=== PATIENT | male | born 1945 | race Caucasian/White ===

== ENCOUNTER 2017-07-22 13:53 | Inpatient (IN) | payer MEDICAID, MEDICARE ==
[~2017-07-22] VITALS: Ht 185.4 cm; Wt 83.7 kg
[2017-07-22] MEDS ORDERED: ALBUTEROL SULF 2.5 MG/0.5ML(0.5%) NEB SOLN HHN ONE (14:30)
[2017-07-22] MEDS ORDERED: IPRATROPIUM BROM 0.5 MG/2.5ML INH SOL HHN ONE (14:30)
[2017-07-22] MEDS ORDERED: methylPREDNISolone SOD SUCC 125 MG/2 ML VL IV ONE (14:30)
[2017-07-22 15:19] LABS: Alanine Aminotransferase 15 U/L (16-61); Albumin 3.5 g/dL (3.4-5.0); Anion Gap 11 (5-15); Aspartate Aminotransferase 10 U/L (15-37); BUN/Creatinine Ratio 16.7; Blood Urea Nitrogen 15 mg/dL (7-18); Calcium 8.6 mg/dL (8.5-10.1); Carbon Dioxide 21 mmol/L (21-32); Chloride 107 mmol/L (98-107); GFR African American 106 mL/min; GFR Non-African American 88 mL/min; Glucose 96 mg/dL (74-106); Magnesium 2.2 mg/dL (1.6-2.6); Potassium 3.6 mmol/L (3.5-5.1); Sodium 139 mmol/L (136-145)
[2017-07-22 15:24] LABS: Alkaline Phosphatase 80 U/L (45-117); Basophils # (auto) 0 uL; Basophils % (auto) 0.5 % (0.0-2.0); Bilirubin, Total 1.2 mg/dL (0.2-1.0); Eosinophils # (auto) 0.2 uL; Eosinophils % (auto) 2.8 % (0.0-7.0); Hematocrit 45.9 % (41.0-53.0); Hemoglobin 15.8 g/dL (13.5-17.5); Lymphocytes # (auto) 1.3 uL; Lymphocytes % (auto) 18.9 % (10.0-50.0); Mean Corpuscular Hemoglobin 31.7 pg (28.0-32.0); Mean Corpuscular Hgb Conc. 34.4 g/dL (32.0-36.0); Mean Corpuscular Volume 92.3 fL (80.0-100.0); Monocytes # (auto) 0.5 uL; Monocytes % (auto) 7.1 % (0.0-12.0); Neutrophils # (auto) 4.7 uL; Neutrophils % (auto) 70.7 % (37.0-80.0); Nucleated Red Blood Cells % 0.5 %; Platelet Count (auto) 148 10^3/uL (140-450); Red Blood Cells 4.97 10^6/uL (4.5-5.90); Red Cell Distribution Width 13.8 % (11.8-14.3); Total Protein 7.1 g/dL (6.4-8.2); White Blood Cell 6.7 10^3/uL (4.4-10.8)
[2017-07-22] MEDS ORDERED: MORPHINE SULF INJ 2 MG/ML SYRINGE 1ML IV PRN (15:45)
[2017-07-22] MEDS ORDERED: LACTULOSE 20Gm/30ML SOLN PO PRN ×2 (15:45→17:30)
[2017-07-22] MEDS ORDERED: LORazepam 0.5 MG TAB PO PRN (15:45)
[2017-07-22] MEDS ORDERED: PROMETHAZINE HCL 25 MG/ML 1ML IV PRN (15:45)
[2017-07-22] MEDS ORDERED: MORPHINE SULFATE 10 MG/ML INJ 1ML SDV IV PRN (15:45)
[2017-07-22] MEDS ORDERED: TEMAZEPAM 15 MG CAP PO PRN (15:45)
[2017-07-22] MEDS ORDERED: ALBUTEROL SULF 2.5 MG/0.5ML(0.5%) NEB SOLN NEB PRN (15:45)
[2017-07-22] MEDS ORDERED: NITROGLYCERIN 0.4 MG SL TAB SL PRN (15:45)
[2017-07-22] MEDS ORDERED: ISOS30TA4 PO (15:54)
[2017-07-22] MEDS ORDERED: METO25TA62 PO (15:54)
[2017-07-22] MEDS ORDERED: GABA300C10 PO (15:54)
[2017-07-22] MEDS ORDERED: HYDR2.5L TOP (15:54)
[2017-07-22] MEDS ORDERED: AMLO5TAB2 PO (15:54)
[2017-07-22] MEDS ORDERED: SENN-68 PO (15:57)
[2017-07-22] MEDS ORDERED: IBUP800T24 PO (15:57)
[2017-07-22] MEDS ORDERED: PRAV20TA3 PO (15:57)
[2017-07-22] MEDS ORDERED: PANT1INJ3 PO (15:57)
[2017-07-22] MEDS ORDERED: MECL-87 PO (15:57)
[2017-07-22] MEDS ORDERED: PANC24002 PO (15:58)
[2017-07-22] MEDS ORDERED: TRIA0.1P11 TOP (15:58)
[2017-07-22] MEDS: OSELTAMIVIR 75 MG CAP PO ONE ×2 (16:02→17:06)
[2017-07-22] MEDS: SODIUM CHLORIDE 0.9% 1,000 ML IV SCH (16:14)
[2017-07-22] MEDS: DOXYCYCLINE HYC 100MG/250ML 250 ML IV SCH (16:14)
[2017-07-22] MEDS: ENOXAPARIN SOD 40 MG/0.4 ML SYRINGE SC SCH (16:14)
[2017-07-22] MEDS ORDERED: LACTULOSE 20Gm/30ML SOLN PO ONE (17:45)
[2017-07-22] MEDS: ASPirin 81 mg TAB PO SCH (18:37)
[2017-07-22 18:50] VITALS: BP 139/77
[2017-07-22] MEDS: IPRATROPIUM BROM 0.5 MG/2.5ML INH SOL NEB SCH (18:56)
[2017-07-22] MEDS: ALBUTEROL SULF 2.5 MG/0.5ML(0.5%) NEB SOLN NEB SCH (18:56)
[2017-07-22] MEDS ORDERED: INFLUENZA QUAD 2017-2018 0.5 ML SYRG IM ONE (19:15)
[2017-07-22] MEDS ORDERED: PNEUMOCOCCAL VACC POLYS 25 MCG/0.5 ML VIAL IM ONE (19:15)
[2017-07-22] MEDS ORDERED: methylPREDNISolone SOD SUCC 40 MG/ML VL IV SCH (20:00)
[2017-07-22] MEDS: HYDROcodone-ACET 5/325MG TAB PO PRN (20:38)
[2017-07-22] MEDS: ATORVASTATIN 20 MG TAB PO SCH (20:38)
[2017-07-22] MEDS: GABAPENTIN 300 MG CAP PO SCH (20:38)
[2017-07-22] MEDS: OSELTAMIVIR 75 MG CAP PO SCH (20:39)
[2017-07-22 21:49] VITALS: BP 123/63
[2017-07-22 21:51] VITALS: BP 131/91
[2017-07-22] MEDS ORDERED: SENNOSIDES DOCUSATE SODIUM PO SCH (22:00)
[2017-07-22] MEDS: ACETAMINOPHEN 500 MG TAB PO PRN (22:22)
[2017-07-22 23:58] VITALS: BP 131/91
[2017-07-23] MEDS: ALBUTEROL SULF 2.5 MG/0.5ML(0.5%) NEB SOLN NEB SCH
[2017-07-23] MEDS: IPRATROPIUM BROM 0.5 MG/2.5ML INH SOL NEB SCH
[2017-07-23] MEDS: DOXYCYCLINE HYC 100MG/250ML 250 ML IV SCH ×2 (04:03→16:10)
[2017-07-23] MEDS: GABAPENTIN 300 MG CAP PO SCH ×3 (04:28→22:26)
[2017-07-23] MEDS: SODIUM CHLORIDE 0.9% 1,000 ML IV SCH ×2 (04:57→18:17)
[2017-07-23 05:00] VITALS: BP 130/75
[2017-07-23] MEDS: HYDROcodone-ACET 5/325MG TAB PO PRN (05:54)
[2017-07-23 06:18] LABS: Cholesterol 156 mg/dL (< 200); HDL Cholesterol 42 mg/dL (40-59); LDL Cholesterol 118 mg/dL (< 100); Triglycerides 68 mg/dL (< 150)
[2017-07-23 09:00] VITALS: BP 137/86
[2017-07-23] MEDS: ENOXAPARIN SOD 40 MG/0.4 ML SYRINGE SC SCH (09:15)
[2017-07-23] MEDS: LACTULOSE 20Gm/30ML SOLN PO SCH ×2 (09:15→09:22)
[2017-07-23] MEDS: OSELTAMIVIR 75 MG CAP PO SCH ×2 (09:16→22:26)
[2017-07-23] MEDS: MORPHINE SULF INJ 2 MG/ML SYRINGE 1ML IV PRN ×2 (09:16→14:30)
[2017-07-23] MEDS: PANTOPRAZOLE 40 MG TAB PO SCH (09:16)
[2017-07-23] MEDS: ASPirin 81 mg TAB PO SCH (09:16)
[2017-07-23] MEDS: METOPROLOL SUCCINATE XL 50 MG TAB PO SCH (09:17)
[2017-07-23] MEDS: ISOSORBIDE MONONITRATE 60 MG TAB PO SCH (09:17)
[2017-07-23] MEDS: amLODIPine BESYLATE 5 MG TAB PO SCH (09:17)
[2017-07-23] MEDS ORDERED: PANT40T PO (09:30)
[2017-07-23] MEDS: DOCUSATE SOD 100 MG CAP PO SCH ×2 (09:34→22:26)
[2017-07-23] MEDS: SENNA 8.6 MG TAB PO SCH ×2 (09:34→22:26)
[2017-07-23] MEDS: PANCREATIC ENZYMES PO SCH (09:57)
[2017-07-23 13:00] VITALS: BP 128/71
[2017-07-23 17:35] VITALS: BP 104/57
[2017-07-23] MEDS: ATORVASTATIN 20 MG TAB PO SCH (22:26)
[2017-07-23 22:36] VITALS: BP 96/50
[2017-07-24] MEDS: DOXYCYCLINE HYC 100MG/250ML 250 ML IV SCH ×2 (04:46→15:51)
[2017-07-24 05:37] VITALS: BP 128/65
[2017-07-24 05:50] LABS: Basophils # (auto) 0 uL; Basophils % (auto) 0.2 % (0.0-2.0); Eosinophils # (auto) 0 uL; Eosinophils % (auto) 0.5 % (0.0-7.0); Hematocrit 41.1 % (41.0-53.0); Hemoglobin 13.8 g/dL (13.5-17.5); Lymphocytes # (auto) 1.1 uL; Lymphocytes % (auto) 16.5 % (10.0-50.0); Mean Corpuscular Hemoglobin 31.4 pg (28.0-32.0); Mean Corpuscular Hgb Conc. 33.6 g/dL (32.0-36.0); Mean Corpuscular Volume 93.4 fL (80.0-100.0); Monocytes # (auto) 0.4 uL; Monocytes % (auto) 6.7 % (0.0-12.0); Neutrophils % (auto) 76.1 % (37.0-80.0); Nucleated Red Blood Cells % 0.1 %; Platelet Count (auto) 125 10^3/uL (140-450); White Blood Cell 6.6 10^3/uL (4.4-10.8)
[2017-07-24] MEDS: GABAPENTIN 300 MG CAP PO SCH ×3 (06:12→21:59)
[2017-07-24] MEDS: SODIUM CHLORIDE 0.9% 1,000 ML IV SCH ×2 (07:37→13:07)
[2017-07-24 09:00] VITALS: BP 132/85
[2017-07-24] MEDS: METOPROLOL SUCCINATE XL 50 MG TAB PO SCH (09:46)
[2017-07-24] MEDS: DOCUSATE SOD 100 MG CAP PO SCH ×2 (09:46→21:58)
[2017-07-24] MEDS: PANTOPRAZOLE 40 MG TAB PO SCH (09:46)
[2017-07-24] MEDS: SENNA 8.6 MG TAB PO SCH ×2 (09:46→21:59)
[2017-07-24] MEDS: OSELTAMIVIR 75 MG CAP PO SCH ×2 (09:46→21:59)
[2017-07-24] MEDS: ASPirin 81 mg TAB PO SCH (09:47)
[2017-07-24] MEDS: amLODIPine BESYLATE 5 MG TAB PO SCH (09:47)
[2017-07-24] MEDS: PANCREATIC ENZYMES PO SCH (09:47)
[2017-07-24] MEDS: ISOSORBIDE MONONITRATE 60 MG TAB PO SCH (09:47)
[2017-07-24] MEDS: ENOXAPARIN SOD 40 MG/0.4 ML SYRINGE SC SCH (09:48)
[2017-07-24] MEDS: LACTULOSE 20Gm/30ML SOLN PO SCH (09:48)
[2017-07-24 13:00] VITALS: BP 115/64
[2017-07-24] MEDS: HYDROcodone-ACET 5/325MG TAB PO PRN ×2 (15:56→21:59)
[2017-07-24] MEDS: ACETAMINOPHEN 500 MG TAB PO PRN (17:37)
[2017-07-24 17:46] VITALS: BP 111/60
[2017-07-24] MEDS: ATORVASTATIN 20 MG TAB PO SCH (21:58)
[2017-07-24 22:44] VITALS: BP 106/66
[2017-07-25] MEDS: DOXYCYCLINE HYC 100MG/250ML 250 ML IV SCH (03:53)
[2017-07-25 05:16] VITALS: BP 126/89
[2017-07-25] MEDS: GABAPENTIN 300 MG CAP PO SCH ×2 (06:07→13:14)
[2017-07-25] MEDS: HYDROcodone-ACET 5/325MG TAB PO PRN (06:16)
[2017-07-25 07:30] VITALS: BP 121/80
[2017-07-25 09:00] VITALS: BP 142/80
[2017-07-25] MEDS: LACTULOSE 20Gm/30ML SOLN PO SCH (10:00)
[2017-07-25] MEDS: PANCREATIC ENZYMES PO SCH (10:00)
[2017-07-25] MEDS: SENNA 8.6 MG TAB PO SCH (10:00)
[2017-07-25] MEDS: DOCUSATE SOD 100 MG CAP PO SCH (10:00)
[2017-07-25] MEDS: METOPROLOL SUCCINATE XL 50 MG TAB PO SCH (10:22)
[2017-07-25] MEDS: PANTOPRAZOLE 40 MG TAB PO SCH (10:23)
[2017-07-25] MEDS: ASPirin 81 mg TAB PO SCH (10:23)
[2017-07-25] MEDS: amLODIPine BESYLATE 5 MG TAB PO SCH (10:23)
[2017-07-25] MEDS: OSELTAMIVIR 75 MG CAP PO SCH (10:23)
[2017-07-25] MEDS: ISOSORBIDE MONONITRATE 60 MG TAB PO SCH (10:23)
[2017-07-25] MEDS: ENOXAPARIN SOD 40 MG/0.4 ML SYRINGE SC SCH (12:44)
[2017-07-25] MEDS: SODIUM CHLORIDE 0.9% 1,000 ML IV SCH (12:45)
[2017-07-25 13:00] VITALS: BP 121/80
[2017-07-25] MEDS ORDERED: TAMIFLU PO (13:00)
[2017-07-25] MEDS ORDERED: DOXY-216 PO (13:00)
[2017-07-25 15:12] VITALS: BP 142/80
[2017-07-25] MEDS ORDERED: DOXYCYCLINE 100 MG TAB/CAP PO SCH (22:00)
== END 2017-07-25 16:50 | disposition home or self-care (01) | DRG 140 ==
LOC: ER 13:53 → TELE 13:54 → TELE-EAST 17:50 → EAST 07-25 13:44 → TELE-EAST 07-25 13:45
PROVIDERS: ADMIT Internal Medicine; ATTEND Internal Medicine
DX: J44.1 Chronic obstructive pulmonary disease with (acute) exacerbation (principal); I69.351 Hemiplegia and hemiparesis following cerebral infarction affecting right dominant side; G62.9 Polyneuropathy, unspecified; J10.1 Influenza due to other identified influenza virus with other respiratory manifestations; I10 Essential (primary) hypertension; E78.5 Hyperlipidemia, unspecified; F41.9 Anxiety disorder, unspecified; G47.00 Insomnia, unspecified; R00.0 Tachycardia, unspecified; K59.00 Constipation, unspecified; Z79.82 Long term (current) use of aspirin; Z83.3 Family history of diabetes mellitus; Z88.8 Allergy status to other drugs, medicaments and biological substances; Z90.49 Acquired absence of other specified parts of digestive tract; Z87.891 Personal history of nicotine dependence; Z23 Encounter for immunization
CPT/HCPCS: 36415; 71045; 80053; 80061; 82550; 83735; 83880; 84132; 84484; 85025; 87400; 93005; 94644; 96372; 96374; 96375; J3490

== ENCOUNTER 2017-08-18 13:59 | Emergency (ER) | payer MEDICARE, MEDICAID ==
[~2017-08-18] VITALS: Ht 185.4 cm; Wt 81.6 kg
[~2017-08-18 13:59] MED LIST: AMLO5TAB2 PO; DOXY-216 PO; GABA300C10 PO; HYDR2.5L TOP; IBUP800T24 PO; ISOS30TA4 PO; MECL-87 PO; METO25TA62 PO; PANC24002 PO; PANT40T PO; PRAV20TA3 PO; SENN-68 PO; TAMIFLU PO; TRIA0.1P11 TOP
[2017-08-18 15:21] LABS: Basophils # (auto) 0 uL; Basophils % (auto) 0.3 % (0.0-2.0); Eosinophils # (auto) 0 uL; Eosinophils % (auto) 0.1 % (0.0-7.0); Hematocrit 46.5 % (41.0-53.0); Hemoglobin 15.7 g/dL (13.5-17.5); Lymphocytes % (auto) 10.2 % (10.0-50.0); Mean Corpuscular Hemoglobin 30.9 pg (28.0-32.0); Mean Corpuscular Hgb Conc. 33.8 g/dL (32.0-36.0); Mean Corpuscular Volume 91.4 fL (80.0-100.0); Monocytes # (auto) 0.8 uL; Neutrophils # (auto) 8.1 uL; Neutrophils % (auto) 81.4 % (37.0-80.0); Nucleated Red Blood Cells % 0.1 %; Platelet Count (auto) 107 10^3/uL (140-450); Red Blood Cells 5.09 10^6/uL (4.5-5.90); Red Cell Distribution Width 13.9 % (11.8-14.3); White Blood Cell 9.9 10^3/uL (4.4-10.8)
[2017-08-18 15:36] LABS: Albumin 3.3 g/dL (3.4-5.0); BUN/Creatinine Ratio 10.3; Calcium 8.7 mg/dL (8.5-10.1); Potassium 3.3 mmol/L (3.5-5.1)
[2017-08-18 15:39] LABS: Bilirubin, Total 2.7 mg/dL (0.2-1.0); Total Protein 7.6 g/dL (6.4-8.2)
[2017-08-18 16:12] VITALS: BP 115/66
== END 2017-08-18 17:01 | disposition home or self-care (01) ==
LOC: ER 13:59
DX: I10 Essential (primary) hypertension (principal); J44.9 Chronic obstructive pulmonary disease, unspecified; Z76.0 Encounter for issue of repeat prescription; Z90.49 Acquired absence of other specified parts of digestive tract; Z87.891 Personal history of nicotine dependence; Z79.82 Long term (current) use of aspirin; Z86.73 Personal history of transient ischemic attack (TIA), and cerebral infarction without residual deficits
CPT/HCPCS: 36415; 80053; 85025; 93005